=== PATIENT | male | born 1995 | race Caucasian/White ===

== ENCOUNTER 2025-04-27 16:36 | Emergency (ER) | payer OTHER ==
[2025-04-27 16:48] VITALS: RESP 20; TEMP 98.3
[2025-04-27] MEDS: IBUPROFEN 600 MG TAB PO STA (17:28)
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
[2025-04-27 18:25] VITALS: BP 120/71; PULSE 78
[2025-04-27] MEDS: HYDROcodone/APAP 5-325MG 1 EACH TAB PO STA (18:40)
[2025-04-27] MEDS: ACET/COD 300 MG/30 MG STARTER PACK TAB BTL PO STA (18:47)
[2025-04-27] MEDS: DIPH,PERTUS(ACELL)TETVAC-LF 0.5 ML VIAL IM ONE (18:50)
== END 2025-04-27 19:09 | disposition home or self-care (01) ==
LOC: EC 16:36
DX: S42.002A Fracture of unspecified part of left clavicle, initial encounter for closed fracture (principal); F17.290 Nicotine dependence, other tobacco product, uncomplicated; Z23 Encounter for immunization; V29.99XA Rider (driver) (passenger) of other motorcycle injured in unspecified traffic accident, initial encounter
CPT/HCPCS: 73030; 73000; 71046; 90715; 99284; 90471; L3670